=== PATIENT | male | born 1990 | race Caucasian/White ===

== ENCOUNTER 2019-12-12 12:09 | Emergency (ER) | payer SELFPAY ==
[~2019-12-12] VITALS: Ht 180.3 cm; Wt 143.2 kg
[~2019-12-12 12:09] MED LIST: NO HOME MEDICATIONS; NORCO 325 MG-7.1 TAB PO; SEROQUEL
[2019-12-12 12:25] VITALS: BP 130/78; TEMP 98.8
[2019-12-12 13:41] VITALS: PULSE 78
== END 2019-12-12 13:41 | disposition home or self-care (01) ==
LOC: COL.ER 12:09
DX: J11.1 Influenza due to unidentified influenza virus with other respiratory manifestations (principal); F17.210 Nicotine dependence, cigarettes, uncomplicated; F31.9 Bipolar disorder, unspecified

== ENCOUNTER 2019-12-23 05:37 | Emergency (ER) | payer SELFPAY ==
[~2019-12-23] VITALS: Ht 180.3 cm; Wt 97.7 kg
[2019-12-23 05:50] VITALS: TEMP 98.1
[2019-12-23 06:45] LABS: BASO # 0.1 (0.0-0.2); BASO % 1.1 % (0.0-2.0); EOS # 0.3 (0.0-0.7); EOS % 2.8 % (0-4.0); GRAN # 5.6 (1.4-6.5); GRAN % 58.9 % (42.2-75.2); HEMOGLOBIN 15.5 g/dl (13.5-18.0); LYMPH # 2.5 (1.2-3.4); LYMPH % 26.6 % (20.0-51.0); MEAN CELL VOLUME 90 fl (80.0-100.0); MEAN CORPUSCULAR HEMOGLOBIN 29 pg (27.0-31.0); MEAN CORPUSCULAR HGB CONC 32 g/dl (33.0-37.0); MEAN PLATELET VOLUME 11.8 fl (7.4-10.4); MONO # 0.9 (0.1-0.6); MONO % 9.2 % (1.7-9.3); PLATELET COUNT 238 K/mm3 (130-400); RED BLOOD COUNT 5.36 M/mm3 (4.20-5.60); REDCELL DISTRIBUTION WIDTH-CV 13.2 % (11.5-14.5)
[2019-12-23 07:01] LABS: ALBUMIN 4.6 gm/dL (3.5-5.0); BILIRUBIN,TOTAL 0.4 mg/dL (0.0-1.0); CALCIUM 10.2 mg/dL (8.4-10.2); POTASSIUM 4.9 mmol/L (3.4-5.0); URIC ACID 7.9 mg/dL (3.5-8.5)
[2019-12-23 07:50] VITALS: BP 150/92; PULSE 57
== END 2019-12-23 07:51 | disposition home or self-care (01) ==
LOC: COL.ER 05:37
PROVIDERS: Emergency Medicine
DX: M25.571 Pain in right ankle and joints of right foot (principal); R20.2 Paresthesia of skin; F17.210 Nicotine dependence, cigarettes, uncomplicated
CPT/HCPCS: J1885

== ENCOUNTER → 2020-01-08 | Outpatient (CLI) | payer SELFPAY | LOC: COL.RAD 07:51 | DX: M65.871 Other synovitis and tenosynovitis, right ankle and foot (principal) ==